=== PATIENT | male | born 1990 | race Hispanic/Latino ===

== ENCOUNTER 2017-11-23 09:06 | Emergency (ER) | payer OTHER | END 2017-11-23 10:17 | disposition home or self-care (01) | LOC: M ED 09:06 | DX: L03.012 Cellulitis of left finger (principal) | CPT/HCPCS: 99283 ==

== ENCOUNTER 2019-11-13 10:30 | Emergency (ER) | payer OTHER ==
[~2019-11-13] VITALS: Ht 182.9 cm; Wt 88.4 kg
[~2019-11-13 10:30] MED LIST: IBUP-1022 PO; KEFL500C17 PO
[2019-11-13 11:28] LABS: INFLUENZA A AMPLIFICATION NEGATIVE (NEGATIVE); INFLUENZA B AMPLIFICATION POSITIVE (NEGATIVE)
[2019-11-13 11:53] VITALS: BP 124/67
== END 2019-11-13 12:01 | disposition home or self-care (01) ==
LOC: M ED 10:30
DX: J10.1 Influenza due to other identified influenza virus with other respiratory manifestations (principal)